=== PATIENT | female | born 1990 ===

== ENCOUNTER → 2019-10-29 | Outpatient (CLI) | payer OTHER ==
[~2019-10-29] MED LIST: IBUP800 PO; OXYACE5T PO; Verotin-Gr Cap1 EACH PO
== END | disposition home or self-care (01) ==
LOC: LAB SHORT 09:06 → LAB EV 09:06
DX: J02.9 Acute pharyngitis, unspecified (principal)
CPT/HCPCS: 87081

== ENCOUNTER → 2022-01-03 | Outpatient (CLI) | payer OTHER | END | disposition home or self-care (01) | LOC: PLD 07:19 → LAB SHORT 07:19 | DX: D22.5 Melanocytic nevi of trunk (principal) | CPT/HCPCS: 88305 ==